=== PATIENT | male | born 1970 | race Caucasian/White ===

== ENCOUNTER 2017-01-23 15:53 | Emergency (ER) | payer OTHER ==
[2017-01-23 17:11] LABS: RED BLOOD COUNT 4.98 M/UL (4.20-5.50); WHITE BLOOD COUNT 8.3 K/UL (4.5-11.0)
[2017-01-23 17:33] LABS: BUN/CREATININE RATIO 14 (0-10)
== END 2017-01-23 18:40 | disposition left against medical advice (07) ==
LOC: ER1 15:53
PROVIDERS: Radiology Radiation Oncology
DX: R55 Syncope and collapse (principal); F17.200 Nicotine dependence, unspecified, uncomplicated
CPT/HCPCS: 36415; 71010; 80053; 80307; 81001; 82150; 82550; 82553; 82803; 83690; 83874; 84484; 85025; 85610; 85730; 93005; 99284; G0480; J7030